=== PATIENT | female | born 1970 | race American Indian/Alaskan Native ===

== ENCOUNTER 2017-01-07 00:04 | Emergency (ER) | payer SELFPAY ==
[2017-01-07] MEDS ORDERED: Aspirin 325 mg EC Tablets PO STA (00:31)
--- NOTE | 2017-01-07 00:31 | C.PDOC ---
History Of Present Illness Patient presents to the emergency room with complaints of neck pain that started yesterday. Patient notes that the pain is worst with movement. Patient denies any recent heavy lifting. Patient denies any other pain, headaches, dizziness, fever, nausea, vomiting, or any other complaints. Time Seen by Provider: 01/07/17 00:30 Chief Complaint (Nursing): Chest Pain History Per: Patient History/Exam Limitations: no limitations Onset/Duration Of Symptoms: Days (1) Current Symptoms Are (Timing): Still Present Severity: Mild Pain Scale Rating Of: 4 Quality: "Pain" Associated Symptoms: denies: Nausea Modifying Factors: None Exacerbating Factors: Movement Alleviating Factors: None Recent travel outside of the [place]: No Past Medical History Reviewed: Historical Data, Nursing Documentation, Vital Signs Vital Signs: Last Vital Signs Temp 98.5 F 01/07/17 00:08 Pulse 62 01/07/17 01:30 Resp 18 01/07/17 01:30 BP 115/78 01/07/17 01:30 Pulse Ox 97 01/07/17 02:28 Family History: States: No Known Family Hx - Social History Hx Tobacco Use: Yes Hx Alcohol Use: Yes Hx Substance Use: No - Immunization History Hx Tetanus Toxoid Vaccination: No Hx Influenza Vaccination: No Hx Pneumococcal Vaccination: No Review Of Systems Constitutional: Negative for: Fever Gastrointestinal: Negative for: Nausea, Vomiting Musculoskeletal: Positive for: Neck Pain Neurological: Negative for: Headache, Dizziness Physical Exam - Physical Exam Appears: Non-toxic Skin: Warm, Dry, No Rash Neck: Normal ROM, Other (Bilateral neck spasms and reproducible tenderness) Cardiovascular: Rhythm Regular Respiratory: No Rales, No Rhonchi, No Wheezing Gastrointestinal/Abdominal: Soft, No Tenderness, No Guarding, No Rebound Extremity: Normal ROM, No Tenderness Neurological/Psych: Oriented x3, Normal Speech ED Course And Treatment - Laboratory Results Result Diagrams: 01/07/17 00:34 01/07/17 00:34 ECG: Interpreted By Me, Viewed By Me ECG Rhythm: Sinus Rhythm (70), Nonspecific Changes O2 Sat by Pulse Oximetry: 97 Pulse Ox Interpretation: Normal - Radiology CXR: Interpreted by Me, Viewed By Me Disposition Counseled Patient/Family Regarding: Studies Performed, Diagnosis, Need For Followup, Rx Given - Disposition Referrals: Non [facility] Provider, [Primary Care Provider] - [facility] [Outside] Disposition: HOME/ ROUTINE Disposition Time: 02:11 Condition: FAIR Additional Instructions: Please return if symptoms recur Prescriptions: Nitrofurantoin Macrocrystals [Macrobid] 1 cap PO BID #14 cap Naproxen [Naprosyn] 1 tab PO BID PRN #25 tab PRN Reason: Pain Instructions: Cervical Strain (DC), Urinary Tract Infection in Women (DC) - Clinical Impression Clinical Impression: UTI (urinary tract infection), Neck pain - Scribe Statement The provider has reviewed the documentation as recorded by the Scribantonette Longo All medical record entries made by the Sulmaibantonette were at my direction and personally dictated by me. I have reviewed the chart and agree that the record accurately reflects my personal performance of the history, physical exam, medical decision making, and the department course for this patient. I have also personally directed, reviewed, and agree with the discharge instructions and disposition.
[2017-01-07] MEDS ORDERED: Aspirin 325 mg EC Tablets PO ONE (00:37)
[2017-01-07 00:47] VITALS: RESP 18
[2017-01-07 00:48] LABS: BASO # 0.1 K/uL (0.0-0.2); BASO % 1.2 % (0.0-2.0); EOS # 0.3 K/uL (0.0-0.7); EOS % 2.5 % (0.0-4.0); HEMATOCRIT 38.6 % (34.0-47.0); LYMPH # 4.3 K/uL (1.0-4.3); LYMPH % 38.5 % (20.0-40.0); MEAN CELL VOLUME 92.4 fL (81.0-99.0); MEAN CORPUSCULAR HEMOGLOBIN 31.6 pg (27.0-31.0); MEAN CORPUSCULAR HGB CONC 34.1 g/dL (33.0-37.0); MEAN PLATELET VOLUME 8.9 fL (7.2-11.7); MONO # 0.9 K/uL (0.0-0.8); MONO % 7.6 % (0.0-10.0); NRBC % 0.1 % (0.0-2.0); RED CELL DISTRIBUTION WIDTH 15.1 % (11.5-14.5); WHITE BLOOD COUNT 11.2 K/uL (4.8-10.8)
[2017-01-07 00:50] LABS: CHLORIDE 104 mmol/L (98-107); POTASSIUM 4.4 mmol/L (3.6-5.2); SODIUM 137 mmol/L (132-148)
[2017-01-07 00:52] LABS: AST/SGOT 24 U/L (14-36); BILIRUBIN,TOTAL 0.6 mg/dL (0.2-1.3); BLOOD UREA NITROGEN 14 mg/dL (7-17); CARBON DIOXIDE 22 mmol/L (22-30); GFR AFRICAN-AMERICAN > 60; TOTAL PROTEIN 7.4 g/dL (6.3-8.3)
[2017-01-07 00:53] LABS: ALKALINE PHOSPHATASE 59 U/L (38-126); ALT/SGPT 19 U/L (9-52); GLUCOSE,RANDOM 72 mg/dL (65-105)
[2017-01-07 01:48] LABS: URINE BACTERIA FEW (<OCC); URINE BILIRUBIN NEGATIVE (NEGATIVE); URINE BLOOD NEGATIVE (NEGATIVE); URINE COLOR Yellow (YELLOW); URINE GLUCOSE (UA) NORMAL (Normal); URINE KETONE TRACE mg/dL (NEGATIVE); URINE LEUKOCYTE ESTERASE 2+ Leu/uL (Negative); URINE PROTEIN NEGATIVE (NEGATIVE); URINE UROBILINOGEN NORMAL mg/dL (0.2-1.0); WBC URINE 50 /hpf (0-5)
[2017-01-07] MEDS ORDERED: cefTRIAXone IV 1 gm in Dextros 50 ML IVPB ONE ×2 (02:02→02:14)
[2017-01-07 02:14] VITALS: O2SAT 97
[2017-01-07 02:58] VITALS: BP 116/65; PULSE 65; TEMP 98.8
--- NOTE | 2017-01-10 15:29 | CARD ---
APPROVED REPORT EKG Measurement Heart [id number] <Conclusion> Sinus bradycardia Otherwise normal ECG
== END 2017-01-07 02:57 | disposition home or self-care (01) ==
LOC: SUPCPDRO 00:04 → C.ER 00:04
DX: M54.2 Cervicalgia (principal); N39.0 Urinary tract infection, site not specified
CPT/HCPCS: 80053; 81001; 84484; 84703; 85025; 85610; 85730; 93005; 96365; 96375; 99285; G0480; J0696; J1885